=== PATIENT | female | born 1980 | race Caucasian/White ===

== ENCOUNTER 2016-08-28 02:53 | Emergency (ER) | payer SELFPAY ==
[2016-08-28 02:54] VITALS: BMI 22.8
[2016-08-28 03:04] VITALS: TEMP 97.9
--- NOTE | 2016-08-28 03:17 | EDPRACDOC ---
- General Information Chief Complaint: Chest Pain Stated Complaint: CHEST PAIN Time Seen by Provider: 08/28/16 03:05 Information Source: Patient Mode of Arrival: Car Home Medications: Home Medications Novolog Pump 0 units SQ .CONTINUOUS 12/13/14 Paroxetine HCl [Paxil] 10 mg PO DAILY 03/05/15 Allergies/Adverse Reactions: Allergies Allergy/AdvReac Type Severity Reaction Status Date / Time codeine [Codeine] Allergy Mild Anaphylaxis Verified 03/25/15 12:18 * levofloxacin [From Levaquin] Allergy Mild Rash-Genera Verified 03/25/15 12:18 lized - History of Present Illness Onset: one month HPI: PT COMPLAINS OF INTERMITTENT "PRESSURE" IN THE CENTER OF HER CHEST X 1 MTH, NO EXAC/AMEL FACTORS, PT COMPLAINS OF PAIN IN RIGHT POSTERIOR SHOULDER, NO N/V, DOES HAVE SOBR WITH PAIN. PT ALSO COMPLAINS OF "KIDNEY PAIN", STATES BLOOD SUGAR HAS BEEN RUNNING HIGH LATELY, HAS BEEN HAVING TO GIVE HERSELF ADDITIONAL BOLUSES TO GET SUGAR DOWN. Chest Pain Location: Reports: Substernal Pain Radiation: Reports: Shoulder (R) Symptoms Occur: Reports: Suddenly, At Rest Cardiac Risk Factors: Reports: Smoker, Diabetes Cardiac History of: Reports: None PE Risk Factors: Reports: None Medications within 24 Hours: Reports: None Prehospital Care: Reports: None Pain Came On: Reports: Suddenly Pain Status: Present Now Pain Description: Reports: Pressure Pain Severity: Moderate Pain Worsens With: Reports: Nothing Pain Improves With: Reports: Nothing Associated Signs and Symptoms: Reports: SOB, Nausea. Denies: Palpitations, Diaphoretic, Abdominal Pain, Vomiting, Calf Pain or Swelling, Chest Rash ED Past Medical History - History Reviewed Yes Nurses notes reviewed and agree except as marked - Patient Medical History Respiratory History: Reports: Asthma GI/ History: Reports: Urinary Tract Infection (FREQUENT UTI- ONE WITH VRE, AND ECOLI), Kidney Stones Psychological History: Reports: Anxiety. Denies: Depression Systemic History: Reports: Anemia (W/CHILDBIRTH), Diabetes. Denies: Cancer Surgical History: Reports: Other (CERVICAL SX) - Family Medical History Reports: Diabetes - Social Medical History Smoking Status: Heavy tobacco smoker (5 or more cigarettes/day or daily pipe/ cigar) ETOH: None Substance Abuse: None EDM Review of Systems - Review of Systems Constitutional: negative: Chills, Fever Eyes: negative: Blurred Vision, Double Vision Ears: negative: Drainage Throat: negative: Pain Nose: negative: Congestion, Discharge Respiratory: Shortness of Breath. negative: Cough, Wheezing Cardiovascular: Chest Pain. negative: Palpitations Gastrointestinal: Nausea. negative: Diarrhea, Pain, Vomiting Genitourinary: negative: Dysuria, Frequency Neurological: negative: Dizziness, Headache, Numbness, Weakness Musculoskeletal: Back Integumentary: No Symptoms Reported - Physical Exam Constitutional: Alert (Awake), No apparent distress Oriented to: Time, Person, Place Last recorded Vital Signs: Last Vital Signs Temp 97.9 F 08/28/16 03:00 Pulse 86 08/28/16 03:00 Resp 20 08/28/16 03:00 BP 183/87 H 08/28/16 03:00 Pulse Ox 97 08/28/16 03:00 Oxygen Pulse Oxygen Saturation 97 O2 Device Room Air Oxygen Flow Rate Fraction of Inspired Oxygen ( FIO2) - HEENT Head: Normal ( normocephalic) Eye Exam: Normal (PERRL, EOMI, Sclera white) Oropharynx: Normal (Pharynx:Moist without exudate,Gums-no swelling) Tympanic Membrane: Normal ENT EAC: Normal TMJ: Normal Nose: No Symptoms Reported (septum midline) Neck: Normal (FROM, trachea at midline) - Respiratory/Cardiovascular Respiratory: Normal - CTA (BBS clear to auscultation without adventitious sounds ) Cardiovascular: Normal (RRR without murmur, gallop or rub) - GI Auscultation: Normal (NABS) Palpation: Normal (Soft,No rebound or guarding, non distended) Tenderness: Non tender Chahal's Sign: Negative - Musculoskeletal Back: Normal (Non-Tender) Extremities: Normal (Normal tone, Pulses 2+ No cyanosis or edema, FROM) - Integumentary Skin: Normal, Warm, Dry Lymphatics: Normal (no adenopathy) - Neurologic Memory Impaired: Normal Motor Function: Normal (Normal tone, Pulses 2+ No cyanosis or edema, FROM) Cranial Nerve: Normal (CN II-X11 intact sensation, strength 5/5) Cerebellar: Normal Mood Description: Normal Perception: Normal ED Chest Pain Exam - Respiratory/Cardiovascular Respiratory: Normal - CTA Cardiovascular/Chest: Normal Radial Pulse: Normal Carotid Arteries: Normal Edema: negative: 1+, 2+, 3+, 4+, 5, 6 Chest Palpation: Normal. negative: Tender, Reproduces Pain - Differential Diagnosis Chest wall pain, Cholelithiasis, CHF, Costochondritis, Gastritis, Myocardial infarction, Pericarditis, Pneumonia - Action Patient received Aspirin within last 24 hours?: No ASA given in the ED: No Aspirin therapy held due to: Other-specify below* (NOT INDICATED) Patient received Beta Cortez within last 24hrs: No Beta Cortez held due to: Other-specify below* (NOT INDICATED) - Re-evaluation Re-evaluation 1 Re-evaluation Time: 04:20 (STABLE, PT IS SUPPOSED TO TAKE MACROBID DAILY BUT DOES NOT, ADVISED TO TAKE MACROBID 100 MG BID, WILL CULTURE URINE) - Results 08/28/16 03:02 08/28/16 03:02 08/28/16 04:25 Laboratory Results - last 24 hr 08/28/16 08/28/16 08/28/16 03:02 03:02 03:02 WBC 10.2 RBC 4.60 Hgb 11.8 L Hct 36.2 MCV 79 L MCH 25.7 L MCHC 32.7 L RDW 16.8 H Plt Count 281 MPV 10.3 Neut % (Auto) 59.4 Lymph % (Auto) 31.8 [place] % (Auto) 6.0 Eos % (Auto) 1.9 Baso % (Auto) 0.9 Absolute Neuts (auto) 6.02 Absolute Lymphs (auto) 3.16 PT 10.6 INR 1.0 APTT 25.1 Sodium 136 L Potassium 3.7 Chloride 97 L Carbon Dioxide 26 Anion Gap 17 H BUN 8 Creatinine 1.00 Estimated GFR (MDRD) > 60 Glucose 317 H Calculated Osmolality 272 Calcium 9.7 Total Bilirubin 0.6 AST 12 L ALT 23 Alkaline Phosphatase 64 Troponin I < 0.01 [id number]-[id number] Pept 103 Total Protein 7.7 Albumin 4.4 Lipase 116 Urine Color Urine Clarity Urine pH Ur Specific [place] Urine Protein Urine Glucose (UA) Urine Ketones Urine Occult Blood Urine Nitrite Urine Bilirubin Urine Urobilinogen Ur Leukocyte Esterase Urine WBC Ur Epithelial Cells Urine Bacteria Urine Mucus 08/28/16 03:28 WBC RBC Hgb Hct MCV MCH MCHC RDW Plt Count MPV Neut % (Auto) Lymph % (Auto) [place] % (Auto) Eos % (Auto) Baso % (Auto) Absolute Neuts (auto) Absolute Lymphs (auto) PT INR APTT Sodium Potassium Chloride Carbon Dioxide Anion Gap BUN Creatinine Estimated GFR (MDRD) Glucose Calculated Osmolality Calcium Total Bilirubin AST ALT Alkaline Phosphatase Troponin I Gcp-O-Varhhegkbrf Pept Total Protein Albumin Lipase Urine Color Yellow Urine Clarity Sl hzy Urine pH 6.0 Ur Specific [place] 1.010 Urine Protein Neg Urine Glucose (UA) 3+ H Urine Ketones Neg Urine Occult Blood 1+ H Urine Nitrite Neg Urine Bilirubin Neg Urine Urobilinogen <2.0 Ur Leukocyte Esterase Trace H Urine WBC 10-20 H Ur Epithelial Cells 3+ Urine Bacteria 4+ H Urine Mucus Occ - EKG EKG #1 EKG Time: 03:01 -: Yes EKG interpreted by me Rate: bpm: 85 [place]: Normal Rhythm: NSR Block: None Hypertrophy: None ST: Normal Comparison: 01/31/14 (NO CHANGE) - Diagnostic Imaging CXR Image interpreted by: Radiologist PORTABLE CHEST 1 VIEW COMPARISON: Chest radiograph performed 11/12/2015 FINDINGS: The lungs are well-aerated and clear. There is no evidence of focal opacification, pleural effusion or pneumothorax. The cardiomediastinal silhouette is within normal limits. No acute osseous abnormalities are seen. IMPRESSION: No acute cardiopulmonary process is seen. Decision Time to Discharge: 04:26 - Departure Disposition: Home Condition: Stable Final Diagnosis: Atypical chest pain UTI (urinary tract infection) Qualifiers: Urinary tract infection type: site unspecified Hematuria presence: without hematuria Qualified Code(s): N39.0 - Urinary tract infection, site not specified Instructions: Chest Pain (ED), Urinary Tract Infection in Women (ED) Education/Counseling Given To: Patient Education/Counseling Given Regarding: Diagnosis, Treatment, Prognosis, Follow Up Referrals: Yuridia Alcantar NP [Primary Care Provider] - One Week Additional Instructions: TAKE MACROBID 100 MG TWICE DAILY, FOLLOW UP WITH YOUR DOCTOR, RETURN TO THE ED FOR ANY WORSENING SYMPTOMS OR CONCERNS.
[2016-08-28] MEDS ORDERED: SODIUM CHLORIDE 0.9% 10 ML FLUSH FLUSH PRN (03:18)
[2016-08-28 03:41] LABS: LEUKOCYTES/URINE TRACE (NEGATIVE); NITRITE/URINE NEG (NEGATIVE); URINE OCCULT BLOOD 1+ (NEG/TRACE)
--- NOTE | 2016-08-28 03:41 | DIRPT ---
CLINICAL DATA: Chronic generalized chest pain. Initial encounter. EXAM: PORTABLE CHEST 1 VIEW COMPARISON: Chest radiograph performed 11/12/2015 FINDINGS: The lungs are well-aerated and clear. There is no evidence of focal opacification, pleural effusion or pneumothorax. The cardiomediastinal silhouette is within normal limits. No acute osseous abnormalities are seen. IMPRESSION: No acute cardiopulmonary process is seen. Electronically Signed By: Silvano Rowland M.D. On: 08/28/2016 03:39
[2016-08-28 03:57] LABS: AUTOMATED BASOPHIL 0.9 % (0-2); AUTOMATED EOSINOPHIL 1.9 % (0-5); AUTOMATED LYMPH 31.8 % (17-44); AUTOMATED NEUTROPHIL 59.4 % (45-76); MPV 10.3 fL (7.4-10.4)
[2016-08-28 04:00] LABS: BLOOD UREA NITROGEN 8 MG/DL (7-17); CALCIUM 9.7 MG/DL (8.4-10.2); CALCULATED OSMOLALITY 272 MOs/Kg (270-290); CHLORIDE 97 mEq/L (98-107); GLUCOSE 317 MG/DL (70-99); SODIUM LEVEL 136 mEq/L (137-146); TOTAL PROTEIN 7.7 G/DL (6.3-8.2)
[2016-08-28 04:01] LABS: PARTIAL THROMB. TIME 25.1 SEC (22-35)
[2016-08-28 04:33] VITALS: BP 146/85; PULSE 73
== END 2016-08-28 04:35 | disposition home or self-care (01) ==
LOC: ED 02:53
DX: N39.0 Urinary tract infection, site not specified (principal); R07.89 Other chest pain
CPT/HCPCS: 36415; 71010; 80053; 81001; 83690; 83880; 84484; 85025; 85610; 85730; 87077; 87086; 87186; 93005; 99284

== ENCOUNTER 2016-09-05 20:04 | Emergency (ER) | payer SELFPAY ==
[2016-09-05 20:05] VITALS: BMI 22.8
[2016-09-05 20:21] VITALS: BP 145/67; PULSE 83; TEMP 99
[2016-09-05 21:16] LABS: AUTOMATED BASOPHIL 0.8 % (0-2); AUTOMATED EOSINOPHIL 1.4 % (0-5); AUTOMATED LYMPH 18.2 % (17-44); AUTOMATED MONOCYTE 5.4 % (3-10); AUTOMATED NEUTROPHIL 74.2 % (45-76)
[2016-09-05 21:22] LABS: LEUKOCYTES/URINE NEG (NEGATIVE); NITRITE/URINE NEG (NEGATIVE); RBC/URINE 0-2 (0-5); URINE OCCULT BLOOD 1+ (NEG/TRACE); WBC/URINE 0-2 (0-5)
[2016-09-05 21:26] LABS: BLOOD UREA NITROGEN 4 MG/DL (7-17); CALCIUM 9.1 MG/DL (8.4-10.2); CALCULATED OSMOLALITY 268 MOs/Kg (270-290); CHLORIDE 100 mEq/L (98-107); GLUCOSE 263 MG/DL (70-99); SODIUM LEVEL 136 mEq/L (137-146); TOTAL PROTEIN 7.5 G/DL (6.3-8.2)
--- NOTE | 2016-09-05 21:32 | EDPRACDOC ---
- General Information Chief Complaint: Headache Stated Complaint: SOMETHING POPED IN BACK IN BACK OF HEAD DIABETIC Time Seen by Provider: 09/05/16 20:39 Information Source: Patient Mode Of Arrival: Car Home Medications: Home Medications Novolog Pump 0 units SQ .CONTINUOUS 12/13/14 Paroxetine HCl [Paxil] 10 mg PO DAILY 03/05/15 CITALOPRAM (anti-depressant) [Celexa] 10 mg PO DAILY #30 tab 09/05/16 Allergies/Adverse Reactions: Allergies Allergy/AdvReac Type Severity Reaction Status Date / Time codeine [Codeine] Allergy Mild Anaphylaxis Verified 09/05/16 20:34 * levofloxacin [From Levaquin] Allergy Mild Rash-Genera Verified 09/05/16 20:34 lized - History of Present Illness Onset: 2 DAYS HPI: PT SAID THAT SHE'S HAD A BAD H/A FOR THE PAST 2 DAYS. SHE SAID THAT SHE HAS NOT CHECKED HER BS IN A FEW DAYS. SHE GETS TOO BUSY AT HOME. Location: Reports: Generalized Pain Quality: Reports: Moderate Associated Signs and Symptoms: Reports: Chronic Headaches ED Past Medical History - Patient Medical History Respiratory History: Reports: Asthma GI/ History: Reports: Urinary Tract Infection (FREQUENT UTI- ONE WITH VRE, AND ECOLI), Kidney Stones Psychological History: Reports: Depression, Anxiety Systemic History: Reports: Anemia (W/CHILDBIRTH), Diabetes. Denies: Cancer Surgical History: Reports: Other (CERVICAL SX). Denies: Hysterectomy - Family Medical History Reports: Diabetes - Social Medical History Smoking Status: Heavy tobacco smoker (5 or more cigarettes/day or daily pipe/ cigar) ETOH: None Substance Abuse: None Lives With: Spouse Lives In: Home EDM Review of Systems - Review of Systems ROS Negative Except as Marked: Yes All systems reviewed and were negative except as marked Constitutional: Weakness Eyes: Blurred Vision Neurological: Headache - Physical Exam Constitutional: Alert (Awake), No apparent distress Oriented to: Time, Person, Place Last recorded Vital Signs: Last Vital Signs Temp 99 F 09/05/16 20:15 Pulse 83 09/05/16 20:15 Resp 18 09/05/16 20:15 BP 145/67 09/05/16 20:15 Pulse Ox 100 09/05/16 20:15 Oxygen Pulse Oxygen Saturation 100 O2 Device Room Air Oxygen Flow Rate Fraction of Inspired Oxygen ( FIO2) - HEENT Head: Normal ( normocephalic) Eye Exam: Normal (PERRL, EOMI, Sclera white) Oropharynx: Normal (Pharynx:Moist without exudate,Gums-no swelling) ENT EAC: Normal TMJ: Normal Nose: No Symptoms Reported (septum midline) Neck: Normal (FROM, trachea at midline) - Respiratory/Cardiovascular Respiratory: Normal - CTA (BBS clear to auscultation without adventitious sounds ) Cardiovascular: Normal (RRR without murmur, gallop or rub) - GI Auscultation: Normal (NABS) Palpation: Normal (Soft,No rebound or guarding, non distended) Tenderness: Non tender Chahal's Sign: Negative - Musculoskeletal Back: Normal (Non-Tender) Extremities: Normal (Normal tone, Pulses 2+ No cyanosis or edema, FROM) - Integumentary Skin: Normal, Warm, Dry Lymphatics: Normal (no adenopathy) - Neurologic Memory Impaired: Normal Motor Function: Normal (Normal tone, Pulses 2+ No cyanosis or edema, FROM) Cranial Nerve: Normal (CN II-X11 intact sensation, strength 5/5) Cerebellar: Normal Mood Description: Normal Thought: Coherent Perception: Normal - Results 09/05/16 21:05 09/05/16 21:05 WBC 9.7 xk/uL (3.8-10.8) 09/05/16 21:05 RBC 4.60 xM/uL (4.20-5.40) 09/05/16 21:05 Hgb 11.9 g/dL (12.0-16.0) L 09/05/16 21:05 Hct 36.6 % (36-47) 09/05/16 21:05 MCV 80 fL (81-99) L 09/05/16 21:05 MCH 25.8 pg (27-32) L 09/05/16 21:05 MCHC 32.4 g/dl (33-36) L 09/05/16 21:05 RDW 17.0 % (11.5-14.5) H 09/05/16 21:05 Plt Count 319 xk/uL (130-400) 09/05/16 21:05 MPV 9.0 fL (7.4-10.4) 09/05/16 21:05 Neut % (Auto) 74.2 % (45-76) 09/05/16 21:05 Lymph % (Auto) 18.2 % (17-44) 09/05/16 21:05 [place] % (Auto) 5.4 % (3-10) 09/05/16 21:05 Eos % (Auto) 1.4 % (0-5) 09/05/16 21:05 Baso % (Auto) 0.8 % (0-2) 09/05/16 21:05 Absolute Neuts (auto) 7.18 xk/uL (1.7-8.2) 09/05/16 21:05 Absolute Lymphs (auto) 1.75 xk/uL (0.65-4.75) 09/05/16 21:05 Sodium 136 mEq/L (137-146) L 09/05/16 21:05 Potassium 3.5 mEq/L (3.5-5.1) 09/05/16 21:05 Chloride 100 mEq/L (98-107) 09/05/16 21:05 Carbon Dioxide 23 mMOL/L (22-33) 09/05/16 21:05 Anion Gap 17 mEq/L (8-16) H 09/05/16 21:05 BUN 4 MG/DL (7-17) L 09/05/16 21:05 Creatinine 0.80 MG/DL (0.52-1.04) 09/05/16 21:05 Estimated GFR (MDRD) > 60 mL/min (>=60) 09/05/16 21:05 Glucose 263 MG/DL (70-99) H 09/05/16 21:05 Calculated Osmolality 268 MOs/Kg (270-290) L 09/05/16 21:05 Calcium 9.1 MG/DL (8.4-10.2) 09/05/16 21:05 Total Bilirubin 0.5 MG/DL (0.2-1.3) 09/05/16 21:05 AST 10 IU/L (14-36) L 09/05/16 21:05 ALT 18 IU/L (9-52) 09/05/16 21:05 Alkaline Phosphatase 62 IU/L (38-126) 09/05/16 21:05 Total Protein 7.5 G/DL (6.3-8.2) 09/05/16 21:05 Albumin 4.1 G/DL (3.5-5.0) 09/05/16 21:05 Urine Color Yellow 09/05/16 21:05 Urine Clarity Clear 09/05/16 21:05 Urine pH 6.0 (5.0-8.0) 09/05/16 21:05 Ur Specific [place] 1.005 (1.003-1.035) 09/05/16 21:05 Urine Protein Neg (NEG/TRACE) 09/05/16 21:05 Urine Glucose (UA) 3+ (NEGATIVE) H 09/05/16 21:05 Urine Ketones Neg (NEGATIVE) 09/05/16 21:05 Urine Occult Blood 1+ (NEG/TRACE) H 09/05/16 21:05 Urine Nitrite Neg (NEGATIVE) 09/05/16 21:05 Urine Bilirubin Neg (NEGATIVE) 09/05/16 21:05 Urine Urobilinogen <2.0 MG/DL (0-1) 09/05/16 21:05 Ur Leukocyte Esterase Neg (NEGATIVE) 09/05/16 21:05 Urine RBC 0-2 (0-5) 09/05/16 21:05 Urine WBC 0-2 (0-5) 09/05/16 21:05 Ur Epithelial Cells 2+ 09/05/16 21:05 Urine Bacteria Few (NEG/FEW) 09/05/16 21:05 Urine Test Neg (NEGATIVE) 09/05/16 21:05 Lab Results 09/05/16 09/05/16 09/05/16 21:05 21:05 21:05 WBC 9.7 RBC 4.60 Hgb 11.9 L Hct 36.6 MCV 80 L MCH 25.8 L MCHC 32.4 L RDW 17.0 H Plt Count 319 MPV 9.0 Neut % (Auto) 74.2 Lymph % (Auto) 18.2 [place] % (Auto) 5.4 Eos % (Auto) 1.4 Baso % (Auto) 0.8 Absolute Neuts (auto) 7.18 Absolute Lymphs (auto) 1.75 Sodium Potassium Chloride Carbon Dioxide Anion Gap BUN Creatinine Estimated GFR (MDRD) Glucose Calculated Osmolality Calcium Total Bilirubin AST ALT Alkaline Phosphatase Total Protein Albumin Urine Color Yellow Urine Clarity Clear Urine pH 6.0 Ur Specific [place] 1.005 Urine Protein Neg Urine Glucose (UA) 3+ H Urine Ketones Neg Urine Occult Blood 1+ H Urine Nitrite Neg Urine Bilirubin Neg Urine Urobilinogen <2.0 Ur Leukocyte Esterase Neg Urine RBC 0-2 Urine WBC 0-2 Ur Epithelial Cells 2+ Urine Bacteria Few Urine Test Neg 09/05/16 21:05 WBC RBC Hgb Hct MCV MCH MCHC RDW Plt Count MPV Neut % (Auto) Lymph % (Auto) [place] % (Auto) Eos % (Auto) Baso % (Auto) Absolute Neuts (auto) Absolute Lymphs (auto) Sodium 136 L Potassium 3.5 Chloride 100 Carbon Dioxide 23 Anion Gap 17 H BUN 4 L Creatinine 0.80 Estimated GFR (MDRD) > 60 Glucose 263 H Calculated Osmolality 268 L Calcium 9.1 Total Bilirubin 0.5 AST 10 L ALT 18 Alkaline Phosphatase 62 Total Protein 7.5 Albumin 4.1 Urine Color Urine Clarity Urine pH Ur Specific [place] Urine Protein Urine Glucose (UA) Urine Ketones Urine Occult Blood Urine Nitrite Urine Bilirubin Urine Urobilinogen Ur Leukocyte Esterase Urine RBC Urine WBC Ur Epithelial Cells Urine Bacteria Urine Test - Diagnostic Imaging Head Image interpreted by: Radiologist No acute intracranial process. Mild intracranial atherosclerosis, advanced for age. Otherwise negative CT head. - Additional Information PT REPORTS BEING UNDER A LOT OF STRESS. SHE WANTS TO TRY AN SSRI. SHE DID NOT WANT ANY PAIN MEDS OR ANY MEDS THAT "ALTER YOUR BRAIN." Decision Time to Discharge: 21:58 - Departure Yes I personally saw and evaluated the patient. Disposition: Home Condition: Fair Final Diagnosis: Headache Instructions: Acute Headache (ED) Education/Counseling Given To: Patient Education/Counseling Given Regarding: Diagnosis, Treatment, Follow Up Prescriptions: CITALOPRAM (anti-depressant) [Celexa] 10 mg PO DAILY #30 tab
--- NOTE | 2016-09-05 21:51 | DIRPT ---
CLINICAL DATA: Head spasms for a few weeks, blurry vision. Fell pop in back of head, pain radiates to neck. Evaluate headache. EXAM: CT HEAD WITHOUT CONTRAST TECHNIQUE: Contiguous axial images were obtained from the base of the skull through the vertex without intravenous contrast. COMPARISON: CT head January 31, 2014 FINDINGS: The ventricles and sulci are normal. No intraparenchymal hemorrhage, mass effect nor midline shift. No acute large vascular territory infarcts. No abnormal extra-axial fluid collections. Basal cisterns are patent. Mild calcific atherosclerosis of the carotid siphons and included vertebral arteries. The No skull fracture. The included ocular globes and orbital contents are non-suspicious. The mastoid aircells and included paranasal sinuses are well-aerated. IMPRESSION: No acute intracranial process. Mild intracranial atherosclerosis, advanced for age. Otherwise negative CT head. Electronically Signed By: Tara Bright M.D. On: 09/05/2016 21:48
[2016-09-05] MEDS ORDERED: OXYMETAZOLINE 0.05% NASAL SPRAY NAS ONE (21:58)
== END 2016-09-05 23:05 | disposition home or self-care (01) ==
LOC: ED 20:04
DX: R51 Headache (principal)
CPT/HCPCS: 36415; 70450; 80053; 81001; 81025; 82962; 85025; 99282; J3490

== ENCOUNTER 2016-09-19 23:00 | Emergency (ER) | payer SELFPAY ==
[2016-09-19 23:05] VITALS: TEMP 98.3
[2016-09-19 23:11] VITALS: BMI 22.1
[2016-09-19] MEDS ORDERED: NS 1,000 ML IV ONE (23:28)
--- NOTE | 2016-09-19 23:31 | EDPRACDOC ---
- General Information Chief Complaint: Sore Throat Stated Complaint: TROUBLE SWALLOWING Time Seen by Provider: 09/19/16 23:15 Information Source: Patient Mode Of Arrival: Car Home Medications: Home Medications Omeprazole 20 mg PO DAILY 09/19/16 Sulfamethoxazole/Trimethoprim [Bactrim Ds Tablet] 1 tab PO BID 09/19/16 Amoxicillin 500 mg PO TID #21 tablet 09/20/16 Nystatin 5 ml PO BID #100 ml 09/20/16 Probiotic Blend [Tabby Q] 1 each PO DAILY #30 tab 09/20/16 Allergies/Adverse Reactions: Allergies Allergy/AdvReac Type Severity Reaction Status Date / Time codeine [Codeine] Allergy Mild Anaphylaxis Verified 09/19/16 23:07 * levofloxacin [From Levaquin] Allergy Mild Rash-Genera Verified 09/19/16 23:07 lized - History of Present Illness Onset: 2 weeks HPI: PT SAID THAT SHE HAS FELT LIKE THERE IS SOMETHING STUCK IN HER THROAT FOR 2 WEEKS. SHE HAS NOT BEEN ABLE TO SWALLOW LIKE NORMAL. SHE FEELS LIKE THINGS ARE GETTING STUCK. PT HAS ALSO HAD A COUGH WITH BLOODY PHLEGM. PT'S BS HAS BEEN HIGH. THE PT IS VERY ANXIOUS AND FEELS LIKE SOMETHING IS WRONG. Sore Throat Symptoms: Reports: Pain Recent: Reports: None Relevant History of: Reports: None Pain Severity: Reports: Mild Urinary Output: Normal Oral Intake: Normal Associated Signs and Symptoms: Reports: None ED Past Medical History - Patient Medical History Respiratory History: Reports: Asthma GI/ History: Reports: Urinary Tract Infection (FREQUENT UTI- ONE WITH VRE, AND ECOLI), Kidney Stones Psychological History: Reports: Depression, Anxiety Systemic History: Reports: Anemia (W/CHILDBIRTH), Diabetes. Denies: Cancer Surgical History: Reports: Other (CERVICAL SX). Denies: Hysterectomy - Family Medical History Reports: Diabetes - Social Medical History Smoking Status: Heavy tobacco smoker (5 or more cigarettes/day or daily pipe/ cigar) ETOH: None Substance Abuse: None Lives In: Home EDM Review of Systems - Review of Systems ROS Negative Except as Marked: Yes All systems reviewed and were negative except as marked Constitutional: Loss of Appetite, Weakness, Weight loss Throat: Pain - Physical Exam Constitutional: Alert (Awake), No apparent distress Oriented to: Time, Person, Place Last recorded Vital Signs: Last Vital Signs Temp 98.3 F 09/19/16 23:02 Pulse 108 09/19/16 23:02 Resp 20 09/19/16 23:02 BP 152/85 09/19/16 23:02 Pulse Ox 100 09/19/16 23:02 Oxygen Pulse Oxygen Saturation 100 O2 Device Room Air Oxygen Flow Rate Fraction of Inspired Oxygen ( FIO2) - HEENT Head: Normal ( normocephalic) Eye Exam: Normal (PERRL, EOMI, Sclera white) Oropharynx: Red ENT EAC: Normal TMJ: Normal Nose: No Symptoms Reported (septum midline) Neck: Normal (FROM, trachea at midline) - Respiratory/Cardiovascular Respiratory: Normal - CTA Cardiovascular: Tachycardia - GI Auscultation: Normal (NABS) Palpation: Normal (Soft,No rebound or guarding, non distended) Tenderness: Non tender Chahal's Sign: Negative - Musculoskeletal Back: Normal (Non-Tender) Extremities: Normal (Normal tone, Pulses 2+ No cyanosis or edema, FROM) - Integumentary Skin: Normal, Warm, Dry Lymphatics: Normal (no adenopathy) - Neurologic Memory Impaired: Normal Motor Function: Normal (Normal tone, Pulses 2+ No cyanosis or edema, FROM) Cranial Nerve: Normal (CN II-X11 intact sensation, strength 5/5) Cerebellar: Normal Mood Description: Anxious Thought: Coherent Perception: Normal - Results 09/19/16 23:55 09/19/16 23:55 Urine Test Neg (NEGATIVE) 09/19/16 23:10 Lab Results 09/19/16 23:10 Urine Test Neg - Diagnostic Imaging Other Image interpreted by: Radiologist NECK: Negative. Chest Image interpreted by: Radiologist No acute cardiopulmonary process seen. Decision Time to Discharge: 00:58 - Departure Yes I personally saw and evaluated the patient. Disposition: Home Condition: Fair Final Diagnosis: Pharyngitis, Bronchitis, Diabetes type 1, controlled, Esophagitis Instructions: Pharyngitis (ED), Esophagitis (ED) Education/Counseling Given To: Patient, Family Member Education/Counseling Given Regarding: Diagnosis, Treatment, Follow Up Referrals: Yuridia Alcantar NP [Primary Care Provider] - One Week Todd Khanna MD [NonStaff] - One Week Prescriptions: New Amoxicillin 500 mg PO TID #21 tablet Probiotic Blend [Tabby Q] 1 each PO DAILY #30 tab Nystatin 5 ml PO BID #100 ml No Action Sulfamethoxazole/Trimethoprim [Bactrim Ds Tablet] 1 tab PO BID Omeprazole 20 mg PO DAILY Forms: Patient Discharge Instructions, ED Discharge Instructions
[2016-09-19 23:44] LABS: LEUKOCYTES/URINE NEG (NEGATIVE); NITRITE/URINE NEG (NEGATIVE); RBC/URINE 0-2 (0-5); URINE OCCULT BLOOD 1+ (NEG/TRACE)
[2016-09-20 00:01] LABS: AUTOMATED BASOPHIL 0.8 % (0-2); AUTOMATED EOSINOPHIL 2.4 % (0-5); AUTOMATED LYMPH 22.1 % (17-44); AUTOMATED MONOCYTE 5.4 % (3-10); AUTOMATED NEUTROPHIL 69.3 % (45-76); MPV 8.6 fL (7.4-10.4)
[2016-09-20 00:12] LABS: BLOOD UREA NITROGEN 9 MG/DL (7-17); CALCIUM 9.5 MG/DL (8.4-10.2); CALCULATED OSMOLALITY 270 MOs/Kg (270-290); CHLORIDE 104 mEq/L (98-107); GLUCOSE 68 MG/DL (70-99); SODIUM LEVEL 142 mEq/L (137-146); TOTAL PROTEIN 7.4 G/DL (6.3-8.2)
[2016-09-20 00:29] LABS: FREE T3 3.72 pg/mL (2.77-5.27); FREE T4 1.25 ng/dL (0.78-2.19)
[2016-09-20 00:42] LABS: hTSH 1.48 uIU/mL (0.5-4.67)
--- NOTE | 2016-09-20 00:50 | DIRPT ---
CLINICAL DATA: Subacute onset of hematemesis and generalized weakness. Initial encounter. EXAM: CHEST 2 VIEW COMPARISON: Chest radiograph performed 08/28/2016 FINDINGS: The lungs are well-aerated and clear. There is no evidence of focal opacification, pleural effusion or pneumothorax. Bilateral nipple shadows are noted. The heart is normal in size; the mediastinal contour is within normal limits. No acute osseous abnormalities are seen. IMPRESSION: No acute cardiopulmonary process seen. Electronically Signed By: Silvano Rowland M.D. On: 09/20/2016 00:47
--- NOTE | 2016-09-20 00:51 | DIRPT ---
CLINICAL DATA: Vomiting blood and weakness. Sick for 2 weeks. Difficulty swallowing. Feels like she has urinary tract infection. EXAM: NECK SOFT TISSUES - 1+ VIEW COMPARISON: None. FINDINGS: There is no evidence of retropharyngeal soft tissue swelling or epiglottic enlargement. The cervical airway is unremarkable and no radio-opaque foreign body identified. IMPRESSION: Negative. Electronically Signed By: Bakari Beverly M.D. On: 09/20/2016 00:48
[2016-09-20 01:18] VITALS: BP 127/79; PULSE 102
== END 2016-09-20 01:15 | disposition home or self-care (01) ==
LOC: ED 23:00
DX: J02.9 Acute pharyngitis, unspecified (principal); J40 Bronchitis, not specified as acute or chronic; E10.65 Type 1 diabetes mellitus with hyperglycemia; K20.9 Esophagitis, unspecified
CPT/HCPCS: 36415; 70360; 71020; 80053; 81001; 81025; 82962; 84439; 84443; 84481; 85025; 86308; 87880; 96360; 99283